=== PATIENT | female | born 1935 | race Caucasian/White ===

== ENCOUNTER → 2016-10-28 | Outpatient (CLI) | payer OTHER ==
[~2016-10-28] MED LIST: ERGO1CAP41 PO; LEVO88TA PO; MOME50SP5 NAE; OLOP0.1S2 XXX; OLOPATADINE 0.6% NAE; PENC1CRE4 TOP; PRLSR20 PO; PRM/3 PO; SALINE 0.65% NAE; SNG10 PO
--- NOTE | 2016-10-29 14:24 | MAMMOGRAPHY REPORT ---
BILATERAL DIGITAL SCREENING MAMMOGRAM WITH CAD: 10/28/2016 CLINICAL HISTORY: Routine screening. Patient has no complaints. TECHNIQUE: Bilateral CC and MLO views were obtained. Current study was also evaluated with a Comput er Aided Detection (CAD) system. COMPARISON: Comparison is made to exams dated: 10/22/2015 mammogram, 10/10/2014 mammogram, 05/17/2013 mammogram, 04/15/2012 mammogram, 03/12/2011 mammogram, and 03/06/2010 mammogram - [facility] enter. BREAST COMPOSITION: There are scattered areas of fibroglandular density in both breasts. FINDINGS: There are fluctuating masses in each upper outer quadrant. Scattered stable benign-appear ing round and punctate microcalcifications bilaterally. No suspicious mass, architectural distortio n or cluster of microcalcifications is seen. IMPRESSION: ACR BI-RADS CATEGORY 1: NEGATIVE There is no mammographic evidence of malignancy. A 1 year screening mammogram is recommended. The p atient will receive written notification of the results. Approximately 10% of breast cancers are not detected with mammography. A negative mammographic repor t should not delay biopsy if a clinically suggestive mass is present. Dejah Crisostomo M.D. ay/:10/28/2016 16:06:17 Movie Shot Cameraman: Shelli HERNANDEZ(Mary)(Hamlet)(MANUEL), [facility] letter sent: Normal 1/2 BI-RADS Code: ACR BI-RADS Category 1: Negative
== END | disposition home or self-care (01) ==
LOC: C.MAMM 11:05
PROVIDERS: ATTEND Family Medicine
DX: Z12.31 Encounter for screening mammogram for malignant neoplasm of breast (principal)

== ENCOUNTER → 2018-01-05 | Outpatient (CLI) | payer OTHER ==
[~2018-01-05] MED LIST changes: -ERGO1CAP41 PO; +ERGO500011 PO; +PENC1CRE33 TOP; -PENC1CRE4 TOP
--- NOTE | 2018-01-07 07:48 | MAMMOGRAPHY REPORT ---
BILATERAL DIGITAL SCREENING MAMMOGRAM TOMOSYNTHESIS WITH CAD: 01/05/2018 CLINICAL HISTORY: Routine screening. Patient has no complaints. TECHNIQUE: Breast tomosynthesis in addition to standard 2D mammography was performed. Current study was also evaluated with a Computer Aided Detection (CAD) system. COMPARISON: Comparison is made to exams dated: 10/28/2016 mammogram, 10/22/2015 mammogram, 10/10/2014 mammogram, 05/17/2013 mammogram, 04/15/2012 mammogram, and 03/12/2011 mammogram - [facility]. BREAST COMPOSITION: There are scattered areas of fibroglandular density in both breasts. FINDINGS: There is fluctuating nodularity in the breasts. Scattered benign round and rim calcificati ons. No suspicious mass, architectural distortion or cluster of suspicious microcalcifications is se en. IMPRESSION: ACR BI-RADS CATEGORY 1: NEGATIVE There is no mammographic evidence of malignancy. A 1 year screening mammogram is recommended. The pa tient will receive written notification of the results. Approximately 10% of breast cancers are not detected with mammography. A negative mammographic report should not delay biopsy if a clinically suggestive mass is present. Dejah Crisostomo M.D. ay/:01/05/2018 15:45:50 Rink Rat: Yen HERNANDEZ(Mary)(Hamlet), [facility] letter sent: Normal 1/2 BI-RADS Code: ACR BI-RADS Category 1: Negative
== END | disposition home or self-care (01) ==
LOC: C.MAMM 10:25
PROVIDERS: ATTEND Family Medicine
DX: Z12.31 Encounter for screening mammogram for malignant neoplasm of breast (principal)

== ENCOUNTER 2018-01-16 20:15 | Emergency (ER) | payer OTHER ==
[~2018-01-16] VITALS: Ht 162.6 cm; Wt 51.0 kg
[2018-01-16 20:23] VITALS: TEMP 36.8; Ht 162.6 cm; Wt 51.0 kg
[2018-01-16] MEDS ORDERED: ACETAMINOPHEN 500 MG TAB PO STA (21:06)
[2018-01-16] MEDS ORDERED: WARF-246 PO (21:22)
[2018-01-16] MEDS ORDERED: TPRSR/25 PO (21:22)
[2018-01-16] MEDS ORDERED: RANI150T2 PO (21:22)
[2018-01-16] MEDS ORDERED: MOME6000 NAE (21:25)
[2018-01-16] MEDS ORDERED: OLOP0.6S NAE (21:25)
[2018-01-16] MEDS ORDERED: MULT60CA PO (21:28)
[2018-01-16] MEDS ORDERED: CLR10 PO (21:28)
[2018-01-16] MEDS ORDERED: CHOL2000 PO (21:28)
[2018-01-16] MEDS ORDERED: KETO0.0216 OPB (21:28)
[2018-01-16] MEDS ORDERED: ACET-1256 PO (21:30)
--- NOTE | 2018-01-16 21:58 | DIAGNOSTIC IMAGING REPORT ---
R FEMUR 2 VIEWS ROUTINE CLINICAL HISTORY: 82 years-old Female presenting with RIGHT HAMSTRING PAIN . TECHNIQUE: Frontal and lateral views of the right femur were obtained. COMPARISON: None. FINDINGS: No acute fracture or malalignment. No advanced degenerative change. No radiographic soft tissue abnormality. IMPRESSION: No acute osseous injury. Electronically signed by: Hamlet Triana M.D. 01/16/2018 9:57 PM Dictated Date/Time: 01/16/2018 9:56 PM
--- NOTE | 2018-01-16 21:59 | DIAGNOSTIC IMAGING REPORT ---
PELVIS 1 OR 2 VIEW ROUTINE CLINICAL HISTORY: 82 years-old Female presenting with right leg injury. TECHNIQUE: Single frontal view the pelvis was obtained. COMPARISON: 07/19/2012. FINDINGS: Sacroiliac joints, pubic symphysis, and hip joints congruent. Pelvis intact. Femoral necks intact. Degenerative changes of the lower lumbar spine. Arcuate lines intact. IMPRESSION: No acute osseous injury. Electronically signed by: Hamlet Triana M.D. 01/16/2018 9:58 PM Dictated Date/Time: 01/16/2018 9:57 PM
--- NOTE | 2018-01-16 22:12 | EMERGENCY ROOM VISIT NOTE ---
ED Visit Note First contact with patient: 20:54 CHIEF COMPLAINT: Right posterior thigh pain 2 hours HISTORY OF PRESENT ILLNESS: Patient is an 82-year-old female who presents the emergency department for evaluation of pain in the posterior right thigh that started about 2 hours ago after an injury. She states that her stumbled and lost his balance and fell into her, she was standing upright essentially with both of her legs locked, when she was bumped. She states that she did not fall down to the ground, but had immediate onset of pain essentially from the inner aspect of the right groin, running down the medial aspect of the right thigh to the posterior knee. She states that she could not move the leg for a few minutes after the injury, then states that when she did, she had difficulty putting weight on it. She feels better when she has the hip and knee flexed. She rates her pain a 1/10. REVIEW OF SYSTEMS: Review of systems as per HPI. All other systems reviewed were negative. 10 systems reviewed.. PMH: Electronic medical records are reviewed and summarized as above/below. See Problem List. SOCIAL HISTORY: Patient lives at home with family members.. PHYSICAL EXAM: Vital Signs: Reviewed Nurse's notes. MENTAL STATUS: Patient is a pleasant, well-appearing 82-year-old white female who is awake and alert and appears younger than her stated age. She is laying supine on the gurney with her right hip and knee flexed. MUSCULOSKELETAL: Examination of the patient's right leg does not reveal any obvious deformity. Low no leg length discrepancy when both of the legs are fully extended. The patient has reproducible tenderness to palpation in the left groin, in the area of the adductor insertion , that is palpable along the medial aspect of the hamstring into the popliteal space. There is no palpable defect. She does not have any pain over the sacrum or the coccyx or over the posterior pelvic rim or over the ischial tuberosity. No pain over the greater trochanter. Pelvis is stable to rock and compression. Examination of the right knee does not reveal any prepatellar soft tissue swelling or joint effusion. No peripatellar tenderness or crepitus. Knee range of motion is full. No gross ligamentous instability is appreciated. The patient has pain with hip extension and abduction. With the hip and knee flexed however she can be internally and externally rotated at the hip and has no discomfort. The right lower extremity is neurovascularly intact. EMERGENCY DEPARTMENT COURSE: The patient was medicated with Tylenol for discomfort. She declined any ice. AP pelvis and right femur x-rays were obtained and noted arthritic changes without evidence for acute fracture or bony abnormality. The patient appears to have suffered a muscular/tendinous injury in the right hamstring distribution. She declined narcotic analgesia. She was offered crutches/walker, but states that they have a walker at home that she can use. Supportive care measures were discussed. She was encouraged to follow-up with her family doctor or orthopedics if her symptoms are not improving. Hip versus pelvic fracture, femur fracture and sprain were also entertained. Medication reconciliation: I attest that I have personally reviewed the patient' s current medication list. Blood pressure screening: Patient was found to have a slightly elevated blood pressure due to circumstances. I do not believe that the patient requires hypertension monitoring. R FEMUR 2 VIEWS ROUTINE CLINICAL HISTORY: 82 years-old Female presenting with RIGHT HAMSTRING PAIN . TECHNIQUE: Frontal and lateral views of the right femur were obtained. COMPARISON: None. FINDINGS: No acute fracture or malalignment. No advanced degenerative change. No radiographic soft tissue abnormality. IMPRESSION: No acute osseous injury. PELVIS 1 OR 2 VIEW ROUTINE CLINICAL HISTORY: 82 years-old Female presenting with right leg injury. TECHNIQUE: Single frontal view the pelvis was obtained. COMPARISON: 07/19/2012. FINDINGS: Sacroiliac joints, pubic symphysis, and hip joints congruent. Pelvis intact. Femoral necks intact. Degenerative changes of the lower lumbar spine. Arcuate lines intact. IMPRESSION: No acute osseous injury. Problem List Medical Problems: (1) Adverse reaction to drug Status: Resolved (2) Esophageal Reflux Status: Chronic (3) Hypertension Nos Status: Chronic (4) Hypothyroidism Nos Status: Chronic Surgical Problems: (1) History of appendectomy Status: Resolved (2) History of cholecystectomy Status: Resolved (3) History of hysterectomy Status: Resolved Current/Historical Medications Scheduled Cholecalciferol (Vitamin D3), 2,000 INTER.UNIT PO DAILY Levothyroxine Sodium (Synthroid), 88 MCG PO DAILY Loratadine (Claritin), 10 MG PO DAILY Metoprolol Succinate (Metoprolol Succinate ER), 25 MG PO DAILY Mometasone Furoate (Nasal) (Mometasone Furoate), 2 SPRAYS MARLEN BID Multiple Vitamins W/ Minerals (Preservision Areds 2), 1 CAP PO BID Olopatadine Hcl (Nasal) (Patanase), 2 SPRY MARLEN BID Ranitidine HCl (Ranitidine HCl), 150 MG PO BID Warfarin Sodium (Warfarin Sodium), 5 MG PO DAILY Scheduled PRN Acetaminophen (Tylenol), 500 MG PO UD PRN for Pain or Fever Ketotifen Fumarate (Ophth) (Zaditor 0.025% Oph), 1 DROP OPB UD PRN for Allergy Symptoms Allergies Coded Allergies: Dairy (Verified Allergy, INTOLERANCE, 07/19/12) Eggs or Egg-derived Products (Verified Allergy, INTOLERANCE, 07/19/12) Penicillins (Verified Allergy, UNKNOWN, 07/19/12) Sulfa Drugs (Verified Allergy, UNKNOWN, 07/19/12) Vital Signs Date Time Temp Pulse Resp B/P (MAP) Pulse Ox O2 Delivery O2 Flow Rate FiO2 01/16/18 22:45 70 18 133/69 95 01/16/18 20:23 36.8 69 18 151/56 97 Room Air Medications Administered Medications (Trade) Dose Ordered Sig/Zach Route Start Time Stop Time Status Last Admin Dose Admin Acetaminophen (Tylenol Tab) 1,000 mg NOW STAT PO 01/16/18 21:06 01/16/18 21:08 DC 01/16/18 21:22 1,000 MG Departure Information Impression Primary Impression: Right hamstring injury Referrals Brice Spears M.D. (PCP) Patient Instructions My [facility] Additional Instructions Acetaminophen(Tylenol) may be used for fever or pain. Use 1000mg every six hours as needed. Avoid using more than 3000mg in a 24 hour period. This medication can be taken if you need to drive, work, or perform activities which may be dangerous when taking narcotic pain medication. Ice compresses for 20 minutes at a time four times daily for 2-3 days, then may switch to moist heat. Use the walker as discussed. Rest and elevate your injury. Continue current medications. Return to the ER immediately for any numbness, tingling, severe pain, extreme swelling in the extremity or as needed. Follow up with your family physician or orthopedic surgery if symptoms are not improving in 3-5 days. Problem Qualifiers Primary Impression: Right hamstring injury Encounter type: initial encounter Qualified Codes: S76.301A - Unspecified injury of muscle, fascia and tendon of the posterior muscle group at thigh level , right thigh, initial encounter
[2018-01-16 22:45] VITALS: BP 133/69; PULSE 70; O2SAT 95
== END 2018-01-16 22:46 | disposition home or self-care (01) ==
LOC: EDBD 20:15 → C.EDC 20:16
DX: S76.301A Unspecified injury of muscle, fascia and tendon of the posterior muscle group at thigh level, right thigh, initial encounter (principal); X58.XXXA Exposure to other specified factors, initial encounter; I10 Essential (primary) hypertension; E03.9 Hypothyroidism, unspecified; Z79.01 Long term (current) use of anticoagulants; Z51.81 Encounter for therapeutic drug level monitoring; Z91.011 Allergy to milk products; Z91.012 Allergy to eggs; Z88.0 Allergy status to penicillin; Z88.2 Allergy status to sulfonamides

== ENCOUNTER 2021-12-11 10:48 | Observation (INO) ==
[2021-12-11] MEDS ORDERED: LIDOCAINE 1% LOCAL 20 ML VIAL ONE (13:26)
[2021-12-11] MEDS ORDERED: VANCOMYCIN HCL 1000MG/20ML VIAL ONE (13:26)
[2021-12-11] MEDS ORDERED: WATER, STERILE FOR INJ 10 ML VIAL ONE (13:26)
[2021-12-11] MEDS ORDERED: BUPIVACAINE 0.25% 30 ML VIAL ONE (13:26)
--- NOTE | 2021-12-11 13:33 | History & Physical Bridge Note ---
Date of Service December 11, 2021 History & Physical Bridge Note I have examined the patient, reviewed the History & Physical and in the interval since the performance of the History & Physical I have noted the following changes of clinical significance: no changes noted
--- NOTE | 2021-12-11 13:33 | Pre Anesthesia Assessment ---
Date of Service December 11, 2021 Pre Sedation Assessment Vital Signs Temp Pulse Resp Pulse Ox 12/11/21 11:21 36.3 C L 58 L 18 99 Cardiovascular RRR, no murmur, no edema + bradycardic Respiratory normal respiratory effort, lungs clear to auscultation Pre-Sedation Airway Assessment Smoking Status: Former smoker Hx Sleep Apnea: No Short, Thick Neck: No Thyromental Distance: > or= 3.5 Finger Breadths Oral Cavity: + WNL Mallampati Class: II ASA: ASA2 NPO Status Date of Last Intake of Fluids: 12/11/21 Time of Last Intake of Fluids: 08:00 Date of Last Intake of Solid Food: 12/10/21 Time of Last Intake of Solid Foods: 20:00 Procedure Planning Contraindications for Sedation: none Current Medications Reviewed: Yes Notes The planned sedation has been discussed with the patient. Informed Consent was obtained. I have identified the patient, determined the appropriateness of sedation and have assessed the patient immediately prior to the procedure. All medicine(s) and interventions are by my order.
[2021-12-11] MEDS ORDERED: CLINDAMYCIN PHOS 300 MG/2 ML VIAL ONE (13:52)
[2021-12-11] MEDS ORDERED: fentaNYL citrate 100 MCG/2 ML VIAL ONE ×2 (13:54→15:04)
[2021-12-11] MEDS ORDERED: MIDAZOLAM HCL 5 MG/ML 1 ML VIAL ONE (13:54)
--- NOTE | 2021-12-11 16:08 | Post Anesthesia Assessment ---
Date of Service December 11, 2021 Post Sedation Assessment Vital Signs Temp Pulse Resp Pulse Ox 12/11/21 11:21 36.3 C L 58 L 18 99 Recovery Score Activity: Moves 4 extremities Respiration: Deep Breath/Cough Circulation: +/-20% PreAnes Value Consciousness: Fully Awake Oxygen Saturation: > 92% On Room Air Discharge Sedation Level of Care: Fast Track Phase II Post Sedation Plan On clinical assessment, the patient appears to have tolerated the sedation without complications. Patient is recovering as anticipated. Patient will continue to be monitored by nursing and may be discharged when sedation discharge criteria are met per below protocol. Upon Completions of procedure up to 15 minutes continue every 5 minute vital signs and the P.A.R. score; then discharge to a Phase I or Fast Track to Phase II per the following guidelines: * Discharge Patient to appropriate Phase II area if PAR is 8 or greater or return to pre- procedure baseline. The post - procedure orders will be as directed. * If PAR score is less than 8 or not return to pre-procedure baseline then patient will follow Phase I monitoring till PAR is reached for Phase II. The Phase I may be done in procedure room or may call to secure a Phase I area. * If naloxone or flumazenil are used for reversal, hold in Phase I for continued monitoring from when last reversal dose was given for a minimum of 60 minutes or longer pending the nurse and/or physician discretion of patient condition before discharge to Phase II. Please call the Sedation Physician to re-evaluate and complete post-note for discharge to Phase II area. Do NOT discharge from procedure sedation or Phase 1 until post- sedation evaluation note is complete by procedure /sedation MD Sedation Discharge Instructions to be given to the patient at discharge to home.
--- NOTE | 2021-12-11 16:10 | Operative Report ---
Post Operative Report Pre & Post Diagnosis tbs Operation Date: 12/11/21 12:00 <No data on this case meets the specified criteria> I identified the patient and participated in the time-out.: Yes Procedure Operation Date: 12/11/21 12:00 Actual Procedures p Pacer with A/V Leads (Dual) - Maria Isabel Hogue DO Surgeon Maria Isabel Hogue, Epic Interface Analyst none Estimated Blood Loss 25 Findings Consistent with Post-Op Diagnosis Specimens none Description of Procedure see official report I attest to the content of the Intraoperative Record and any orders documented therein. Any exceptions are noted below.
--- NOTE | 2021-12-11 17:10 | XRay Report ---
XR chest 1V portable CLINICAL HISTORY: s/p ppm COMPARISON STUDY: Chest radiograph September 20, 2020. FINDINGS: Interval placement of a dual lead left subclavian pacemaker is noted. There is a small to m oderate left pneumothorax. Superior pleural separation measures 1.9 cm. Cardiomediastinal silhouette is stable. There is no evidence for pulmonary edema. No pleural effusion is present. No right pneumot horax. IMPRESSION: Small to moderate left pneumothorax following pacemaker insertion. This finding was disc ussed with Dr. Hogue at time of dictation. ACT 112: Negative or not required by law. Electronically signed by: David Leigh M.D. 12/11/2021 5:09 PM
[2021-12-11] MEDS ORDERED: ARTIFICIAL TEARS OP PRN (18:16)
[2021-12-11] MEDS ORDERED: ONDANSETRON INJ 2 MG/ML 2 ML VIAL IV PRN (18:26)
[2021-12-11] MEDS ORDERED: hydrALAZINE HCL 20 MG/ML VIAL IV PRN (18:27)
[2021-12-11] MEDS: ACETAMINOPHEN 500 MG TAB PO PRN (20:43)
[2021-12-12] MEDS: ACETAMINOPHEN 500 MG TAB PO PRN ×2 (06:23→12:26)
[2021-12-12] MEDS: LEVOTHYROXINE SODIUM 125 MCG TABLET PO SCH (06:24)
[2021-12-12 06:37] LABS: Basophils # (auto) 0.03 K/uL (0-0.2); Basophils % (auto) 0.4 %; Eosinophils # (auto) 0.03 K/uL (0-0.5); Eosinophils % (auto) 0.4 %; Hematocrit (blood only) 39.3 % (37-47); Immature Granulocytes # (auto) 0.02 K/uL (0.00-0.02); Immature Granulocytes % (auto) 0.3 %; Lymphocytes # (auto) 1.23 K/uL (1.2-3.4); Lymphocytes % (auto) 16.7 %; Mean Corpuscular Hemoglobin 30.8 pg (25-34); Mean Corpuscular Hgb Conc 33.1 g/dL (32-36); Mean Corpuscular Volume 93.1 fL (80-100); Mean Platelet Volume 11.7 fL (7.4-10.4); Monocytes # (auto) 0.88 K/uL (0.11-0.59); Neutrophils # (auto) 5.17 K/uL (1.4-6.5); Neutrophils % (auto) 70.2 %; Platelet Count 181 K/uL (130-400); RDW Coefficient of Variation 14.1 % (11.5-14.5); RDW Standard Deviation 47.9 fL (36.4-46.3); Red Blood Count 4.22 M/uL (4.2-5.4); White Blood Count 7.36 K/uL (4.8-10.8)
[2021-12-12 06:51] LABS: INR 1.3 (0.9-1.1); Prothrombin Time 13.4 Seconds (9.0-12.0)
[2021-12-12 07:08] LABS: BUN Creatinine Ratio 15.1 (10-20); Calcium 8.5 mg/dl (8.5-10.1); Creatinine Clr Calc Pharmacy 42.6 ml/min; Est GFR (African American) 70.9 ml/min; Est GFR (Non-African American) 61.2 ml/min; Potassium 4.1 mmol/L (3.5-5.1)
--- NOTE | 2021-12-12 09:17 | XRay Report ---
XR chest 2V PA/lateral HISTORY: Follow-up pneumothorax. Status post pacemaker placement. COMPARISON: Chest 12/11/2021. FINDINGS: Small left pneumothorax has increased in size and now demonstrates a maximal pleural gap of 2.1 cm. This extends into the left lung base. A left-sided dual-chamber pacemaker is again noted. Th e heart is normal in size. No evidence for pulmonary edema. Trace bilateral pleural effusions. IMPRESSION: 1. Increase in size in the small left pneumothorax. 2. Trace bilateral pleural effusions. 3. This report was called/faxed to the referring physician following dictation. ACT 112: Negative or not required by law. Electronically signed by: Foreign Barnett M.D. 12/12/2021 9:16 AM
[2021-12-12] MEDS: CHOLECALCIFEROL 1,000 UNITS 25 MCG TAB PO SCH (09:43)
[2021-12-12] MEDS: METOPROLOL SUCC 50MG EXT REL TAB PO SCH (09:44)
[2021-12-12] MEDS: LORATADINE 10 MG TAB PO SCH (09:44)
[2021-12-12] MEDS: PANTOprazole 40 MG TAB PO SCH (09:44)
[2021-12-12] MEDS: FAMOTIDINE 20 MG TAB PO SCH (09:44)
--- NOTE | 2021-12-12 10:09 | Hospitalist Consultation ---
Date of Consultation December 12, 2021 History of Present Illness Attending Physician: Maria Isabel Hogue DO History of Present Illness This is an 86 yo F with PMhx of tachybrady syndrome, PAF/flutter on metoprolol and coumadin, HTN, HLD, CKD stage III, hypothyroidism, osteoporosis, CKD III, neuropathy who presented to the hospital overnight for pacemaker insertion on 12/11/[address] Mercedes. Allergies Allergy/AdvReac Type Severity Reaction Status Date / Time Egg Derived Allergy INTOLERANCE Verified 07/19/12 02:13 milk Allergy INTOLERANCE Verified 07/19/12 02:13 Penicillins Allergy UNKNOWN Verified 07/19/12 02:13 Sulfa (Sulfonamide Allergy UNKNOWN Verified 07/19/12 02:13 Antibiotics) Home Medications Medication Instructions Recorded Confirmed Type Acetaminophen (Tylenol) 500 mg PO UD PRN #0 tab 01/16/18 12/11/21 History CHOLECALCIFEROL (VITAMIN D3) 2,000 inter.unit PO DAILY #0 cap 01/16/18 12/11/21 History KETOTIFEN FUMARATE (OPHTH) 1 drp OPB UD PRN #0 btl 01/16/18 12/11/21 History (ZADITOR 0.025% OPH) Loratadine (Claritin) 10 mg PO DAILY #0 tab 01/16/18 12/11/21 History MULTIPLE VITAMINS W/ MINERALS 2 cap PO DAILY #0 01/16/18 12/11/21 History (PRESERVISION AREDS 2) Mometasone Furoate (Nasal) 2 spry MARLEN BID #0 01/16/18 12/11/21 History (Mometasone Furoate) WARFARIN SODIUM 5 mg PO DAILY #0 01/16/18 12/11/21 History Metoprolol Succinate (Metoprolol 50 mg PO DAILY #0 12/11/21 12/11/21 Rx Succinate ER) famotidine 20 mg tablet 20 mg PO DAILY 12/11/21 12/11/21 History ipratropium bromide 21 mcg (0.03 2 spray INTRANASAL BID PRN 12/11/21 12/11/21 History %) nasal spray lactobacillus combination no.4 3 3,000 mmu cells PO DAILY 12/11/21 12/11/21 History billion cell capsule (Probiotic) levothyroxine 125 mcg tablet 125 mcg PO DAILY 12/11/21 12/11/21 History (Synthroid) omeprazole 40 mg capsule,delayed 40 mg PO DAILY 12/11/21 12/11/21 History release peg 400 0.4 %-propylene glycol 1 drp OPHTHALMIC (EYE) DAILY PRN 12/11/21 12/11/21 History (PF) 0.3 % eye drops (Systane Hydration PF) vitamin B complex 1 cap PO DAILY 12/11/21 12/11/21 History Patient History Social History Smoking Status: Former smoker Tobacco Type: Cigarettes Hx Alcohol Use: No Hx Substance Use: No Beliefs That Will Affect Care: None Current Living Situation: Family Other Information That Helps Us Care for You: No Feels Safe at Home: Yes Safety Concerns: Feels Safe At This Time Assistive Devices: None Results & Data Results & Data ([facility]) Vital Signs (Past 12 Hours) Vital Signs Temp Pulse Pulse Resp BP Pulse Ox 12/12/21 09:51 94 12/12/21 09:36 66 121/60 88 L 12/12/21 07:44 36.9 C 60 18 145/68 H 92 12/12/21 07:22 36.6 C 64 12 134/65 93 12/12/21 03:45 37.0 C 60 17 129/61 97 12/11/21 23:05 60 12/11/21 23:04 36.5 C 60 16 125/67 96
--- NOTE | 2021-12-12 10:11 | Cardiology Progress Note ---
Date of Service December 12, 2021 Assessment & Plan (1) Pneumothorax, postprocedural: (2) S/P cardiac pacemaker procedure: (3) Paroxysmal atrial fibrillation: (4) Tachy-amber syndrome: (5) HTN (hypertension): Plan: Patient seen and examined with history as noted above. Pneumothorax slightly greater in size today. Pacemaker functioning appropriately patient with mild to moderate pleuritic pain and incisional discomfort. Discussed with pulmonology will place patient on nonrebreather mask repeat chest x-ray in 4 hours consider thoracostomy if pneumothorax remains persistent Continue to hold warfarin Expect at least an additional 24-hour stay in hospital we will consult hospitalist Admission and Anticipated Discharge Date Admission Date: December 11, 2021 Subjective Patient seen and examined, chart, medications, telemetry reviewed. With pleuritic pain this morning as well as incisional pain with minimal intermittent drops in O2 saturations. Oxygen discontinued last night due to normal O2 sats. Chest x-ray reveals slightly larger pneumothorax with basilar expansion Pacemaker functioning appropriately on interrogation this morning. Surgical site without hematoma. No fevers or chills. Warfarin on hold, INR normal Review of Systems Review of Systems: All systems reviewed & are unremarkable except as noted in Subjective Physical Exam Constitutional: + thin; no acute distress Mild pleuritic pain on deep inspiration Eyes: PERRL, conjunctivae normal, anicteric sclerae ENMT: external ear and nose normal, oropharynx normal Neck: trachea midline, no thyromegaly Respiratory: Auscultation: + diminished lung sounds Cardiovascular: Rate/Rhythm: regular rate and regular rhythm Chest (Breasts): Chest: + pacemaker (No hematoma with mild incisional tenderness) Gastrointestinal (Abdomen): normal bowel sounds, soft, nontender, no hepatosplenomegaly Musculoskeletal: no cyanosis or clubbing, extremities motor strength 5/5 Neurologic: PERRL, EOMI, accommodation nl, no face palsy, no dysarthria Results & Data ([facility]) Vital Signs (Past 12 Hours) Vital Signs Temp Pulse Pulse Resp BP Pulse Ox 12/12/21 09:51 94 12/12/21 09:36 66 121/60 88 L 12/12/21 07:44 36.9 C 60 18 145/68 H 92 12/12/21 07:22 36.6 C 64 12 134/65 93 12/12/21 03:45 37.0 C 60 17 129/61 97 12/11/21 23:05 60 12/11/21 23:04 36.5 C 60 16 125/67 96 Laboratory Results Laboratory Results - last 24 hr 12/12/21 12/12/21 12/12/21 06:17 06:17 06:17 WBC 7.36 RBC 4.22 Hgb 13.0 Hct 39.3 MCV 93.1 MCH 30.8 MCHC 33.1 RDW Std Deviation 47.9 H RDW Coeff of Ritu 14.1 Plt Count 181 MPV 11.7 H Immature Gran % (Auto) 0.3 Neut % (Auto) 70.2 Lymph % (Auto) 16.7 [place] % (Auto) 12.0 Eos % (Auto) 0.4 Baso % (Auto) 0.4 Neut # (Auto) 5.17 Lymph # (Auto) 1.23 [place] # (Auto) 0.88 H Eos # (Auto) 0.03 Baso # (Auto) 0.03 Immature Gran # (Auto) 0.02 PT 13.4 H INR 1.3 H Sodium 136 Potassium 4.1 Chloride 104 Carbon Dioxide 26 Anion Gap 6 BUN 13 Creatinine 0.86 Est Cr Clr Drug Dosing 42.6 Est GFR ( Amer) 70.9 Est GFR (Non-Af Amer) 61.2 BUN/Creatinine Ratio 15.1 Glucose 98 Calcium 8.5 Diagnostic Findings Chest x-ray PA and lateral 12/12/2021 FINDINGS: Small left pneumothorax has increased in size and now demonstrates a maximal pleural gap of 2.1 cm. This extends into the left lung base. A left- sided dual-chamber pacemaker is again noted. The heart is normal in size. No evidence for pulmonary edema. Trace bilateral pleural effusions. IMPRESSION: 1. Increase in size in the small left pneumothorax. 2. Trace bilateral pleural effusions.
--- NOTE | 2021-12-12 10:26 | History & Physical Report ---
Date of Service December 12, 2021 Assessment & Plan (1) S/P cardiac pacemaker procedure: (2) Tachy-amber syndrome: (3) Paroxysmal atrial fibrillation: (4) HTN (hypertension): (5) HLD (hyperlipidemia): Plan: - Admit to tele - Cardiology has requested that medicine take over management of the patient at this time - Consult cardiology and pulmonology for continued care - Metoprolol 50 mg qam initiated, continue - Vital signs are stable - Resume coumadin once ok with cardiology, has been held past 2 days, INR 1.3 , trend with daily labs (6) Pneumothorax, postprocedural: Plan: -CXR from 12/11 reviewed showing small pneumothorax measuring 1.9 cm, continue oxygen as treatment, patient is currently on 100% nonrebreather as she was taken off of O2 in the middle the night. Same pneumothorax is now measuring approximately 2.1 cm, no pulmonary edema, trace bilateral pleural effusions -Currently not short of breath, O2 sats are 94%, respiratory rate is 18 -Repeat CXR routinely, next around 1400, can do Q4H pending response to o2 -Consult pulmonology for further management-if increased size and pneumo can consider needle decompression or chest tube insertion (7) Hypothyroidism: Plan: - Continue levothyroxine 125 mcg daily (8) CKD (chronic kidney disease), stage III: Plan: - Cr. today is 0.86 vs baseline of 1.0 - monitor closely for volume overload, noted bilateral small pleural effusions on CXR - appears euvolemic on exam. (9) Osteoporosis: Plan: - Cont vit D and calcium supplementation DVT ppx: - teds, scds, resume coumadin as per cardiology, encourage ambulation CODE: Full code Dispo: From home, likely to remain in the hospital x 1-2 days Admission and Anticipated Discharge Date Admission Date: December 11, 2021 History of Present Illness Chief Complaint: pacer complication Primary Care Provider: Brice Spears MD This is an 86 yo F with PMhx of tachybrady syndrome, PAF/flutter on metoprolol and coumadin, HTN, HLD, CKD stage III, hypothyroidism, osteoporosis, CKD III, neuropathy who presented to the hospital overnight for pacemaker insertion on 12/11/[address] Mercedes. Reason for placement is primarily due to tachybradycardia syndrome where earlier in November she was seen by cardiology and her heart rate was noted to be in the 40s so low-dose metoprolol was stopped, then 2 weeks later was followed up in the outpatient cardiology office and found to be in A. fib with a heart rate in the 130s so was started back on low-dose metoprolol and referred to electrophysiology. Doctors is only recommended pacemaker at that point time. Pt is seen s/p pacemaker insertion. She has been holding her Coumadin for the past 2 days prior to pacemaker placement. Patient tolerated the procedure itself well. Post procedurally the patient developed a small left-sided pneumothorax which measured 2 cm initially. This morning the pneumothorax is slightly larger, so the patient was placed on 100% nonrebreather. Pulmonology has been consulted and will plan to repeat chest x-ray routinely to ensure resolvent. Margarita is doing very well currently, with her only complaint is moderate soreness status post procedure. She is wearing a sling to help assist with comfort as well as keeping her from raising her left arm over her head. She denies any complaints of shortness of breath, cough, or congestion. She is aware that she has a lung issue and is been requested to wear oxygen until this resolves. We discussed a repeat chest x-ray around 2:00 this afternoon, pulmonology consult, and will further determine if there is any further needs for pneumothorax management. Surgical Hx: hysterectomy with ovaries remaining, appendectomy, tonsillectomy Family Hx: Mother: cardiac disease, DM II, kidney disease, stroke Father: CHF, Stroke Uncle: Stroke Uncle: Cardiac disease Paternal grandmother: Stroke Allergies Allergy/AdvReac Type Severity Reaction Status Date / Time Egg Derived Allergy INTOLERANCE Verified 07/19/12 02:13 milk Allergy INTOLERANCE Verified 07/19/12 02:13 Penicillins Allergy UNKNOWN Verified 07/19/12 02:13 Sulfa (Sulfonamide Allergy UNKNOWN Verified 07/19/12 02:13 Antibiotics) Home Medications Medication Instructions Recorded Confirmed Type Acetaminophen (Tylenol) 500 mg PO UD PRN #0 tab 01/16/18 12/12/21 History CHOLECALCIFEROL (VITAMIN D3) 2,000 inter.unit PO DAILY #0 cap 01/16/18 12/12/21 History KETOTIFEN FUMARATE (OPHTH) 1 drp OPB UD PRN #0 btl 01/16/18 12/12/21 History (ZADITOR 0.025% OPH) Loratadine (Claritin) 10 mg PO DAILY #0 tab 01/16/18 12/12/21 History MULTIPLE VITAMINS W/ MINERALS 2 cap PO DAILY #0 01/16/18 12/12/21 History (PRESERVISION AREDS 2) Mometasone Furoate (Nasal) 2 spry MARLEN BID #0 01/16/18 12/12/21 History (Mometasone Furoate) WARFARIN SODIUM 5 mg PO DAILY #0 01/16/18 12/12/21 History Metoprolol Succinate (Metoprolol 50 mg PO DAILY #0 12/11/21 12/12/21 Rx Succinate ER) famotidine 20 mg tablet 20 mg PO DAILY 12/11/21 12/12/21 History ipratropium bromide 21 mcg (0.03 2 spray INTRANASAL BID PRN 12/11/21 12/12/21 History %) nasal spray lactobacillus combination no.4 3 3,000 mmu cells PO DAILY 12/11/21 12/12/21 History billion cell capsule (Probiotic) levothyroxine 125 mcg tablet 125 mcg PO DAILY 12/11/21 12/12/21 History (Synthroid) omeprazole 40 mg capsule,delayed 40 mg PO DAILY 12/11/21 12/12/21 History release peg 400 0.4 %-propylene glycol 1 drp OPHTHALMIC (EYE) DAILY PRN 12/11/21 12/12/21 History (PF) 0.3 % eye drops (Systane Hydration PF) vitamin B complex 1 cap PO DAILY 12/11/21 12/12/21 History Past Med/Surg History Medical History (Updated 12/12/21 @ 12:46 by Rosana Mendoza PA-C) CKD (chronic kidney disease), stage III HLD (hyperlipidemia) HTN (hypertension) Hypothyroidism Osteoporosis Paroxysmal atrial fibrillation Tachy-amber syndrome Surgical History (Updated 12/12/21 @ 12:45 by Rosana Mendoza PA-C) H/O: hysterectomy Hx of tonsillectomy S/P appendectomy Family History (Updated 12/12/21 @ 12:44 by Rosana Mendoza PA-C) Mother Heart disease Coronary heart disease Stroke Father Heart disease Uncle Stroke Grandmother (Paternal) Stroke Uncle Heart disease Social History Smoking Status: Former smoker Tobacco Type: Cigarettes Hx Alcohol Use: No Hx Substance Use: No Beliefs That Will Affect Care: None Current Living Situation: Family Other Information That Helps Us Care for You: No Feels Safe at Home: Yes Safety Concerns: Feels Safe At This Time Assistive Devices: None Review of Systems Review of Systems: Constitutional: No fever, sweats or chills Eyes: No diplopia, no worsening or blurred vision ENT: normal hearing, no trouble swallowing Respiratory: No cough, sputum, dyspnea at rest or on exertion Cardiovascular: No chest pain, +soreness around incision site, no tightness or palpitations Abdomen: No pain, nausea, vomiting, diarrhea or constipation Musculoskeletal: No joint pain, calf pain, swelling Neurologic: No weakness, numbness/tingling, or balance problems Psychiatric: No anxiety or depression Skin: No rash or itch Physical Exam Physical Exam: General: awake, alert, no apparent distress Head: Normocephalic, atraumatic ENT: PERRL, EOMI, no pharyngeal exudate, mucous membranes moist Chest: Clear to auscultation, on 100% nonrebreather with adequate O2 sats, no adventitious breath sounds Cardiac: Regular rate and rhythm, + incision site dressing c/d/i, no murmur, no JVD, normal peripheral pulses, good capillary refill Abdominal: NABS x 4 quadrants, soft, nondistended, nontender to palpation, no rebound or guarding Extremities: Normal inspection, no peripheral edema or erythema, calfs nontender to palpation Psych: Normal mood and affect Neuro: AAO x 3, strength intact bilaterally and rated 5/5, no motor deficits, speech is clear, no peripheral sensory deficits Results & Data Results & Data ([facility]) Vital Signs (Past 12 Hours) Vital Signs Temp Pulse Pulse Resp BP Pulse Ox 12/12/21 09:51 94 12/12/21 09:36 66 121/60 88 L 12/12/21 07:44 36.9 C 60 18 145/68 H 92 12/12/21 07:22 36.6 C 64 12 134/65 93 12/12/21 03:45 37.0 C 60 17 129/61 97 12/11/21 23:05 60 12/11/21 23:04 36.5 C 60 16 125/67 96 Laboratory Results 12/12/21 12/12/21 12/12/21 06:17 06:17 06:17 WBC 7.36 RBC 4.22 Hgb 13.0 Hct 39.3 MCV 93.1 MCH 30.8 MCHC 33.1 RDW Std Deviation 47.9 H RDW Coeff of Ritu 14.1 Plt Count 181 MPV 11.7 H Immature Gran % (Auto) 0.3 Neut % (Auto) 70.2 Lymph % (Auto) 16.7 Buchanan % (Auto) 12.0 Eos % (Auto) 0.4 Baso % (Auto) 0.4 Neut # (Auto) 5.17 Lymph # (Auto) 1.23 Buchanan # (Auto) 0.88 H Eos # (Auto) 0.03 Baso # (Auto) 0.03 Immature Gran # (Auto) 0.02 PT 13.4 H INR 1.3 H Sodium 136 Potassium 4.1 Chloride 104 Carbon Dioxide 26 Anion Gap 6 BUN 13 Creatinine 0.86 Est Cr Clr Drug Dosing 42.6 Est GFR ( Amer) 70.9 Est GFR (Non-Af Amer) 61.2 BUN/Creatinine Ratio 15.1 Glucose 98 Calcium 8.5 Diagnostic Findings Chest X-Ray 12/11/21 17:00 XR chest 1V portable CLINICAL HISTORY: s/p ppm COMPARISON STUDY: Chest radiograph September 20, 2020. FINDINGS: Interval placement of a dual lead left subclavian pacemaker is noted. There is a small to moderate left pneumothorax. Superior pleural separation measures 1.9 cm. Cardiomediastinal silhouette is stable. There is no evidence for pulmonary edema. No pleural effusion is present. No right pneumothorax. IMPRESSION: Small to moderate left pneumothorax following pacemaker insertion. This finding was discussed with Dr. Hogue at time of dictation. ACT 112: Negative or not required by law. Electronically signed by: David Leigh M.D. 12/11/2021 5:09 PM Chest X-Ray 12/12/21 08:00 XR chest 2V PA/lateral HISTORY: Follow-up pneumothorax. Status post pacemaker placement. COMPARISON: Chest 12/11/2021. FINDINGS: Small left pneumothorax has increased in size and now demonstrates a maximal pleural gap of 2.1 cm. This extends into the left lung base. A left- sided dual-chamber pacemaker is again noted. The heart is normal in size. No evidence for pulmonary edema. Trace bilateral pleural effusions. IMPRESSION: 1. Increase in size in the small left pneumothorax. 2. Trace bilateral pleural effusions. 3. This report was called/faxed to the referring physician following dictation. ACT 112: Negative or not required by law. Electronically signed by: Foreign Barnett M.D. 12/12/2021 9:16 AM Code Status & VTE Plan Code Status Full code VTE Prophylaxis Plan VTE Prophylaxis will be ordered: No Supervising Physician Co-Signing Physician Notes I have seen and examined the patient and have discussed the case with the provider above. I agree with the assessment and plan as stated. 86 yo F s/p pacemaker placement on 12/11 c/b pneumothorax that is >2cm. She was admitted for conservative management overnight and CXR this morning reveals worsening pleural gap. She reports pain now in her back and nurse just messaged to say she also now has worsened pain moving into her epigastric region. Patient had just eaten some lunch when I saw her and wasn't sure if the food made her pain worse. She is wearing 100% oxygen supplementation and is not working to breathe. She otherwise reports some incisional pain and swelling around her pacer site. Physical exam reveals an elderly woman who is well-nourished and well-developed who is in no acute distress on 100% oxygen by non-rebreather. Lungs are clear to auscultation with some diminished breath sounds on the left and there are no crackles, wheezes or rales. There is no increased respiratory effort and no conversational dyspnea. Cardiac exam reveals S1/2 heard without m/g/r. Rhythm is regular and rate is regular. Abdomen is soft, NTND. She has no peripheral edema and examines as euvolemic. She is mentating clearly and has no gross focal neurologic deficits. CXR this morning with slight progression to PTX. CBC and BMP within normal limits and INR 1.3 with a known history of warfarin use held for procedure. EKG with RBBB and no evidence of acute ischemia. She has a known h/o PAF and has intermittently gone into atrial fibrillation here on the monitor with spontaneous conversion back to sinus rhythm. Agree with plan as above for conservative management pending further evaluation by pulmonary. Cont supportive care with continuous oxygen supplementation for now. Hold on anticoagulation in case of need for procedure. Enid Peru, DO [facility]
[2021-12-12] MEDS ORDERED: MoRPHine SULFATE 2 MG/ML CARP IV PRN (12:24)
[2021-12-12] MEDS ORDERED: oxyCODONE HCL IR 5 MG TAB (IMMEDIATE RELEASE) PO PRN (12:24)
[2021-12-12] MEDS ORDERED: ACETAMINOPHEN 500 MG TAB PO PRN (12:26)
--- NOTE | 2021-12-12 14:36 | XRay Report ---
XR chest 2V PA/lateral at 2:34 PM CLINICAL HISTORY: Follow-up pneumothorax. COMPARISON STUDY: 12/12/2021 at 8:41 AM TECHNIQUE: 2 views of the chest FINDINGS: Frontal and lateral radiographs of the chest demonstrate the cardiomediastinal silhouette to be withi n normal limits. Compared to the previous study, there is slight interval decrease in left apical pne umothorax with maximal pleural catheter now measuring 1.8 cm. Minimal extension to the left lung base is seen with evidence for hydropneumothorax at the left lung base. Lungs are otherwise clear of alveolar opacities. There is evidence for underlying COPD. There is no e vidence for right pleural effusion. There is small left pleural effusion. There is no evidence for va scular congestion. There is no acute osseous pathology. IMPRESSION: 1. Slight interval improvement in left apical pleural effusion as described above. 2. There is a small hydropneumothorax at the left lung base. ACT 112: Negative or not required by law. Electronically signed by: Gilberto Olvera M.D. 12/12/2021 2:34 PM
[2021-12-12] MEDS ORDERED: FAMOTIDINE 20 MG in SYRINGE 3 ML IV PRN (15:14)
[2021-12-12] MEDS ORDERED: CALCIUM CARBONATE 500 MG CHEWABLE TAB PO PRN (15:14)
--- NOTE | 2021-12-12 16:19 | Pulmonary Consultation ---
Date of Consultation December 12, 2021 Assessment & Plan (1) Pneumothorax, postprocedural: 86F w/ hx hypertension stage III CKD, hypothyroidism, hyperlipidemia, paroxysmal atrial fibrillation (with tachybradycardia syndrome complications) seen for postprocedural left-sided pneumothorax following implantation of pacemaker -Pneumothorax appears to have reduced in size. Therefore, no need for decompressive thoracostomy at this time. Continue to monitor. (2) Pleuritic pain: Supervising Physician Co-Signing Physician Notes Patient seen and examined with the resident physician. Agree with the assessment and plan aside for any additions/exceptions noted: Patient with a post pacemaker placement left apical pneumothorax. Discussed in person with cardiology. Serial x-rays reviewed going back to 12/11/2021 at 5:09 PM. Last chest x-ray from 12/12/2021 at 2:34 PM suggesting slight interval improvement in the left apical pneumothorax with a basilar component as well. Radiology read pleural separation to be approximately 1.8 cm. Upon my review there appears to be stability going back to the previous chest x-ray from earlier today. We will continue with conservative strategy of serial chest x- rays and nonrebreather to help allow for reabsorption of the pneumothorax. Should there be any increase in size of pneumothorax or worsening symptoms, will place a small bore chest tube. Please hold anticoagulation. Physical exam Constitutional: Elderly appearing female no apparent distress. Sitting up in a bed and eating her dinner. Eyes: Pupils are equal round and reactive to light. Conjunctivae are normal. Anicteric sclera. Ears nose, mouth and throat: No facial deformity. Nasal tubing in place. Neck: Trachea is midline. Visual inspection is normal. Respiratory: Clear to auscultation bilaterally. Slightly diminished on the left. No wheezes. Cardiovascular: Regular rate and rhythm. No murmurs. No edema. Gastrointestinal: Normal bowel sounds, soft, nontender and nondistended. No hepatosplenomegaly noted. Musculoskeletal: Left upper limb immobilizer in place. Bandaging in place over the pacemaker site. Skin: No rashes, warm dry and intact. Neurologic: No obvious focal neurological deficits seen. Psychiatric: Alert and oriented x3 with a euthymic affect. History of Present Illness Attending Physician: Enid Matt DO History of Present Illness Margarita is an 86-year-old woman with a past medical history of hypertension, rate controlled and anticoagulated paroxysmal atrial fibrillation (complicated by tachybradycardia syndrome, now status post cardiac pacemaker implantation), stage III CKD, and osteoporosis, who developed a pneumothorax following pacemaker implantation. Left apical pneumothorax was confirmed via chest x-ray, measuring approximately 2.1 cm. Today, patient is lying in bed comfortably. She denies shortness of breath at rest and with ambulation to and from the commode in her room. She denies cough, recent infection, or wheeze. She does report pleuritic chest pain "between the shoulder blades." She has no further questions or complaints at this time. Allergies Allergy/AdvReac Type Severity Reaction Status Date / Time Egg Derived Allergy INTOLERANCE Verified 07/19/12 02:13 milk Allergy INTOLERANCE Verified 07/19/12 02:13 Penicillins Allergy UNKNOWN Verified 07/19/12:13 Sulfa (Sulfonamide Allergy UNKNOWN Verified 07/19/12 02:13 Antibiotics) Home Medications Medication Instructions Recorded Confirmed Type Acetaminophen (Tylenol) 500 mg PO UD PRN #0 tab 01/16/18 12/12/21 History CHOLECALCIFEROL (VITAMIN D3) 2,000 inter.unit PO DAILY #0 cap 01/16/18 12/12/21 History KETOTIFEN FUMARATE (OPHTH) 1 drp OPB UD PRN #0 btl 01/16/18 12/12/21 History (ZADITOR 0.025% OPH) Loratadine (Claritin) 10 mg PO DAILY #0 tab 01/16/18 12/12/21 History MULTIPLE VITAMINS W/ MINERALS 2 cap PO DAILY #0 01/16/18 12/12/21 History (PRESERVISION AREDS 2) Mometasone Furoate (Nasal) 2 spry MARLEN BID #0 01/16/18 12/12/21 History (Mometasone Furoate) WARFARIN SODIUM 5 mg PO DAILY #0 01/16/18 12/12/21 History Metoprolol Succinate (Metoprolol 50 mg PO DAILY #0 12/11/21 12/12/21 Rx Succinate ER) famotidine 20 mg tablet 20 mg PO DAILY 12/11/21 12/12/21 History ipratropium bromide 21 mcg (0.03 2 spray INTRANASAL BID PRN 12/11/21 12/12/21 History %) nasal spray lactobacillus combination no.4 3 3,000 mmu cells PO DAILY 12/11/21 12/12/21 History billion cell capsule (Probiotic) levothyroxine 125 mcg tablet 125 mcg PO DAILY 12/11/21 12/12/21 History (Synthroid) omeprazole 40 mg capsule,delayed 40 mg PO DAILY 12/11/21 12/12/21 History release peg 400 0.4 %-propylene glycol 1 drp OPHTHALMIC (EYE) DAILY PRN 12/11/21 12/12/21 History (PF) 0.3 % eye drops (Systane Hydration PF) vitamin B complex 1 cap PO DAILY 12/11/21 12/12/21 History Patient History Medical History (Updated 12/12/21 @ 18:21 by Tariq Alonso MD) CKD (chronic kidney disease), stage III HLD (hyperlipidemia) HTN (hypertension) Hypothyroidism Osteoporosis Paroxysmal atrial fibrillation Pleuritic pain Tachy-amber syndrome Surgical History (Updated 12/12/21 @ 12:45 by Rosana Mendoza PA-C) H/O: hysterectomy Hx of tonsillectomy S/P appendectomy Family History (Updated 12/12/21 @ 12:44 by Rosana Mendoza PA-C) Mother Heart disease Coronary heart disease Stroke Father Heart disease Uncle Stroke Grandmother (Paternal) Stroke Uncle Heart disease Social History Smoking Status: Former smoker Tobacco Type: Cigarettes Hx Alcohol Use: No Hx Substance Use: No Beliefs That Will Affect Care: None Current Living Situation: Family Other Information That Helps Us Care for You: No Feels Safe at Home: Yes Safety Concerns: Feels Safe At This Time Assistive Devices: Oxygen - Continuous Review of Systems Review of Systems: All systems reviewed & are unremarkable except as noted in HPI & below Physical Exam Physical Exam: General: Patient is awake, alert with oxygen mask onin no acute distress. CV: Regular rate and rhythm. Normal S1 and S2. No murmurs gallops or rubs. No pedal edema. Pulmonary: Inspiratory basilar crackles (R >L), expiratory wheeze on auscultation. No rhonchi. Abdomen: Soft, nondistended abdomen. No bruits heard on auscultation. No tenderness to deep palpation. No guarding or rebound. Results & Data Results & Data ([facility]) Vital Signs (Past 12 Hours) Vital Signs Temp Pulse Resp BP Pulse Ox 12/12/21 15:20 37.0 C 61 20 147/64 H 99 12/12/21 11:23 36.8 C 62 16 165/69 H 100 12/12/21 09:51 94 12/12/21 09:36 66 121/60 88 L 12/12/21 07:44 36.9 C 60 18 145/68 H 92 12/12/21 07:22 36.6 C 64 12 134/65 93 Resident Activity Tracking Resident Involvement: Resident Care Provided Care Provided: Adult Hospital Medicine
--- NOTE | 2021-12-12 18:20 | Billing Data ---
Date of Service December 12, 2021 Coding Level of Care Code 31129 Initial Inpt Care Lvl 3
--- NOTE | 2021-12-13 05:27 | Electrocardiogram Report ---
Test Reason : Blood Pressure : / mmHG Vent. Rate : 075 BPM Atrial Rate : 075 BPM P-R Int : 230 ms QRS Dur : 120 ms QT Int : 382 ms P-R-T Axes : 052 010 029 degrees QTc Int : 426 ms Sinus rhythm with 1st degree A-V block Right bundle branch block Abnormal ECG When compared with ECG of 20-SEP-2020 14:47, Sinus rhythm has replaced Atrial fibrillation Vent. rate has decreased BY 63 BPM Right bundle branch block is now Present Confirmed by Reese Zamora ([id number]) on 12/13/2021 5:27:15 AM Referred By: Maria Isabel Hogue Confirmed By:Reese Zamora
[2021-12-13] MEDS: LEVOTHYROXINE SODIUM 125 MCG TABLET PO SCH (06:15)
[2021-12-13 06:51] LABS: Hematocrit (blood only) 39.1 % (37-47); Hemoglobin 12.9 g/dL (12.0-16.0); Platelet Count 149 K/uL (130-400); RDW Standard Deviation 48.3 fL (36.4-46.3); Red Blood Count 4.16 M/uL (4.2-5.4); White Blood Count 7.49 K/uL (4.8-10.8)
[2021-12-13 07:06] LABS: INR 1.2 (0.9-1.1); Prothrombin Time 13.1 Seconds (9.0-12.0)
[2021-12-13 07:14] LABS: Albumin Globulin Ratio 1.1 (0.9-2); Albumin Level 3.5 gm/dl (3.4-5.0); BUN Creatinine Ratio 15.9 (10-20); Bilirubin,Total 0.8 mg/dl (0.2-1.0); Calcium 8.6 mg/dl (8.5-10.1); Creatinine Clr Calc Pharmacy 41.9 ml/min; Est GFR (Non-African American) 59.5 ml/min; Globulin 3.2 gm/dl (2.5-4.0); Total Protein 6.7 gm/dl (6.0-8.3)
--- NOTE | 2021-12-13 08:39 | XRay Report ---
XR chest 1V portable CLINICAL HISTORY: follow up ptx COMPARISON STUDY: Chest radiograph December 12, 2021 at 2:34 PM. FINDINGS: A [id number] left pneumothorax is similar to prior exam. Left basilar opacity favors atelectasis. There is no right pneumothorax. Dual-lead left subclavian pacemaker is in place. Cardia c mediastinal silhouette is stable. IMPRESSION: No significant change in a small to moderate left pneumothorax. ACT 112: Negative or not required by law. Electronically signed by: David Leigh M.D. 12/13/2021 8:38 AM
[2021-12-13] MEDS: PANTOprazole 40 MG TAB PO SCH (08:58)
[2021-12-13] MEDS: FAMOTIDINE 20 MG TAB PO SCH (08:58)
[2021-12-13] MEDS: METOPROLOL SUCC 50MG EXT REL TAB PO SCH (08:58)
[2021-12-13] MEDS: LORATADINE 10 MG TAB PO SCH (08:58)
[2021-12-13] MEDS: CHOLECALCIFEROL 1,000 UNITS 25 MCG TAB PO SCH (08:58)
--- NOTE | 2021-12-13 11:21 | XRay Report ---
XR chest 1V portable CLINICAL HISTORY: chest tube placement COMPARISON STUDY: No previous studies for comparison. FINDINGS: Small left pneumothorax has mildly decreased in size since prior exam. Superior pleural sep aration now measures 2.5 cm. It previously measured 2.9 cm. Pleural catheter is extrathoracic in loca tion. Tip projects over the left infraclavicular region. IMPRESSION: Small left pneumothorax, mildly decreased in size since prior exam. Pleural catheter ext rathoracic in location, as described above. ACT 112: Negative or not required by law. Electronically signed by: David Leigh M.D. 12/13/2021 11:20 AM
--- NOTE | 2021-12-13 12:18 | Procedure Note ---
Procedure Note Date of Service December 13, 2021 Note Pneumothorax catheter note Procedure: Evacuation of pneumothorax Anesthesia: 10 mL lidocaine 1% Written consent was obtained and placed on the chart. Timeout was done prior to the procedure. Prior to procedure, chest x-ray films were reviewed by myself and demonstrated a left apical pneumothorax. A time-out was completed verifying correct patient, procedure, site, positioning, and implant(s) or special equipment if applicable. Utilizing bedside ultrasound, chest wall was evaluated for location for optimal chest tube placement. She had significant tenderness over this entire area due to her recent pacemaker placement. Location between the second and third ribs were marked on the skin using gentle pressure. The left sided chest wall was prepped with chlorhexidine and draped in the typical sterile fashion. 10 mL of 1% Lidocaine without epinephrine was used to anesthetize the skin down to the dorsal surface of the second rib. I was able to aspirate some air back with the finder needle. We then made a small debra with a size 11 scalpel. I then attempted insertion of the pneumo dart but was meeting resistance about a [address] in. I was unable to fully pass the catheter. I did place the catheter to suction with the Tracee drainage cath. No tidaling or bubbling was seen. I sutured the catheter in place. I placed a bandage over the catheter site. The patient tolerated the procedure well. Post procedure chest x-ray suggested persistent left apical pneumothorax with an extrapleural pneumothorax catheter. There was a slight decrease in size of the pneumothorax. I ultimately removed the catheter as it was malpositioned. She tolerated the removal well. Sutures were removed. Sterile gauze was placed over the site. Coding CPT Codes Pulmonary/Thoracic - Pulmonary and Thoracic: 88304 Tube thoracostomy ([id number]) Pulmonary/Thoracic - Pulmonary and Thoracic: 18047 Remove lung catheter ([id number]) [facility] [place]) Pulmonary/Thoracic Procedure 1: Pulmonary and Thoracic: 08371 Tube thoracostomy Procedure 2: Pulmonary and Thoracic: 07769 Remove lung catheter
--- NOTE | 2021-12-13 12:19 | Billing Data ---
Date of Service December 13, 2021 Coding Level of Care Code 03949 Subseq Hosp Care Lvl 3
--- NOTE | 2021-12-13 13:08 | Cardiology Progress Note ---
Date of Service December 13, 2021 Assessment & Plan (1) Pneumothorax, postprocedural: (2) S/P cardiac pacemaker procedure: (3) Paroxysmal atrial fibrillation: (4) Tachy-amber syndrome: (5) HTN (hypertension): Plan: Pneumothorax is gradually becoming smaller. Patient less symptomatic. Attempts for catheter placement in pneumothorax limited by current pacemaker today We will recheck clinical status and if stable likely discharge home for follow- up chest x-ray Thursday Admission and Anticipated Discharge Date Admission Date: December 11, 2021 Subjective Patient with less pleuritic pain today. Still surgical incisional discomfort.Patient seen and examined, chart, medications, telemetry reviewed Pacemaker functioning appropriately no significant arrhythmias. Review of Systems Review of Systems: All systems reviewed & are unremarkable except as noted in Subjective Physical Exam Constitutional: + thin; no acute distress Eyes: PERRL, conjunctivae normal, anicteric sclerae ENMT: external ear and nose normal, oropharynx normal Neck: trachea midline, no thyromegaly Respiratory: Auscultation: + diminished lung sounds Cardiovascular: Rate/Rhythm: regular rate and regular rhythm Chest (Breasts): Chest: + pacemaker (No hematoma with mild incisional tenderness) Gastrointestinal (Abdomen): normal bowel sounds, soft, nontender, no hepatosplenomegaly Musculoskeletal: no cyanosis or clubbing, extremities motor strength 5/5 Skin: no rashes, warm and dry Neurologic: PERRL, EOMI, accommodation nl, no face palsy, no dysarthria Results & Data ([facility]) Vital Signs (Past 12 Hours) Vital Signs Temp Pulse Resp BP Pulse Ox 12/13/21 07:53 36.5 C 68 22 141/64 H 99 12/13/21 03:36 36.7 C 70 16 135/64 100 Laboratory Results Laboratory Results - last 24 hr 12/13/21 12/13/21 12/13/21 06:09 06:09 06:09 WBC 7.49 RBC 4.16 L Hgb 12.9 Hct 39.1 MCV 94.0 MCH 31.0 MCHC 33.0 RDW Std Deviation 48.3 H RDW Coeff of Ritu 14.0 Plt Count 149 MPV 12.0 H PT 13.1 H INR 1.2 H Sodium 134 L Potassium 4.0 Chloride 102 Carbon Dioxide 26 Anion Gap 6 BUN 14 Creatinine 0.88 Est Cr Clr Drug Dosing 41.9 Est GFR ( Amer) 69.0 Est GFR (Non-Af Amer) 59.5 BUN/Creatinine Ratio 15.9 Glucose 97 Calcium 8.6 Total Bilirubin 0.8 AST 29 ALT 32 Alkaline Phosphatase 68 Total Protein 6.7 Albumin 3.5 Globulin 3.2 Albumin/Globulin Ratio 1.1
--- NOTE | 2021-12-13 14:14 | Pulmonology Progress Note ---
Date of Service December 13, 2021 Assessment & Plan (1) Pneumothorax, postprocedural: Plan: 86F w/ hx hypertension stage III CKD, hypothyroidism, hyperlipidemia, paroxysmal atrial fibrillation (with tachybradycardia syndrome complications) seen for postprocedural left-sided pneumothorax following implantation of pacemaker -Pneumothorax appears to have reduced in size, from 2.4 to 1.9 cm. -Thoracostomy was attempted today (in light of risk factors for unstable pneumo thorax, most notably her age and emphysematous lung changes) but was unable to penetrate apical pleural space due to location and surrounding pacemaker architecture. Repeat CXR did confirm a further, if minimal, reduction in pneumothorax size at the apex. Basilar pneumothorax appears to have resolved. -Given the stability and progressive, if minimal, reduction in her pneumothorax size over last 2-3 days, tentative plan (pending successful weaning of oxygen to room air) is to conservatively manage, with discharge and repeat CXR on Thursday. Admission and Anticipated Discharge Date Admission Date: December 11, 2021 Supervising Physician Co-Signing Physician Notes Patient seen and examined with the resident physician. Agree with the assessment and plan aside for any additions/exceptions noted: Pleural catheter placement to evacuate the pneumothorax was unsuccessful given location, pain and presence of pacemaker. There was a slight decrease in size of pneumothorax. Her symptoms remain completely stable and she is saturating in the mid to high 90s on room air. Reasonable to discharge the patient home and repeat a chest x-ray on Thursday. If symptoms worsen such as increasing shortness of breath or chest pain, would recommend urgently going to the ER for evaluation of worsening pneumothorax. Recommend minimizing activity for the next 2 days. Avoid any lifting over 5 pounds for the next 2 weeks. Avoid air travel. Physical exam Constitutional: Elderly appearing female no apparent distress. Sitting up in a bed and eating her dinner. Eyes: Pupils are equal round and reactive to light. Conjunctivae are normal. Anicteric sclera. Ears nose, mouth and throat: No facial deformity. Nasal tubing in place. Neck: Trachea is midline. Visual inspection is normal. Respiratory: Clear to auscultation bilaterally. Slightly diminished on the left. No wheezes. Cardiovascular: Regular rate and rhythm. No murmurs. No edema. Gastrointestinal: Normal bowel sounds, soft, nontender and nondistended. No hepatosplenomegaly noted. Musculoskeletal: Left upper limb immobilizer in place. Bandaging in place over the pacemaker site. Skin: No rashes, warm dry and intact. Neurologic: No obvious focal neurological deficits seen. Psychiatric: Alert and oriented x3 with a euthymic affect. Subjective No acute events overnight. She continues to report pleuritic chest pain with inhalation. ROS+ cough. She denies SOB, fatigue, CHU, or dizziness with ambulation. Review of Systems Review of Systems: All systems reviewed & are unremarkable except as noted in HPI & below Physical Exam Physical Exam: General: Patient is awake, alert with oxygen mask onin no acute distress. CV: Regular rate and rhythm. Normal S1 and S2. No murmurs gallops or rubs. No pedal edema. Pulmonary: Inspiratory bibasilar crackles, mild expiratory wheeze on auscultation. No rhonchi. Abdomen: Soft, nondistended abdomen. No bruits heard on auscultation. No tenderness to deep palpation. No guarding or rebound. MSK: Sternal TTP exacerbated by inhalation. Results & Data Results & Data ([facility]) Vital Signs (Past 12 Hours) Vital Signs Temp Pulse Resp BP Pulse Ox 12/13/21 07:53 36.5 C 68 22 141/64 H 99 12/13/21 03:36 36.7 C 70 16 135/64 100 Resident Activity Tracking Resident Involvement: Resident Care Provided Care Provided: Adult Hospital Medicine
--- NOTE | 2021-12-13 16:29 | Discharge Summary ---
Date of Service December 13, 2021 Admission HPI Per Admitting Provider This is an 86 yo F with PMhx of tachybrady syndrome, PAF/flutter on metoprolol and coumadin, HTN, HLD, CKD stage III, hypothyroidism, osteoporosis, CKD III, neuropathy who presented to the hospital overnight for pacemaker insertion on 12/11/[address] Mercedes. Reason for placement is primarily due to tachybradycardia syndrome where earlier in November she was seen by cardiology and her heart rate was noted to be in the 40s so low-dose metoprolol was stopped, then 2 weeks later was followed up in the outpatient cardiology office and found to be in A. fib with a heart rate in the 130s so was started back on low-dose metoprolol and referred to electrophysiology. Doctors is only recommended pacemaker at that point time. Pt is seen s/p pacemaker insertion. She has been holding her Coumadin for the past 2 days prior to pacemaker placement. Patient tolerated the procedure itself well. Post procedurally the patient developed a small left-sided pneumothorax which measured 2 cm initially. This morning the pneumothorax is slightly larger, so the patient was placed on 100% nonrebreather. Pulmonology has been consulted and will plan to repeat chest x-ray routinely to ensure resolvent. Margarita is doing very well currently, with her only complaint is moderate soreness status post procedure. She is wearing a sling to help assist with comfort as well as keeping her from raising her left arm over her head. She denies any complaints of shortness of breath, cough, or congestion. She is aware that she has a lung issue and is been requested to wear oxygen until this resolves. We discussed a repeat chest x-ray around 2:00 this afternoon, pulmonology consult, and will further determine if there is any further needs for pneumothorax management. Admission Exam Per Admitting Provider General: awake, alert, no apparent distress Head: Normocephalic, atraumatic ENT: PERRL, EOMI, no pharyngeal exudate, mucous membranes moist Chest: Clear to auscultation, on 100% nonrebreather with adequate O2 sats, no adventitious breath sounds Cardiac: Regular rate and rhythm, + incision site dressing c/d/i, no murmur, no JVD, normal peripheral pulses, good capillary refill Abdominal: NABS x 4 quadrants, soft, nondistended, nontender to palpation, no rebound or guarding Extremities: Normal inspection, no peripheral edema or erythema, calfs nontender to palpation Psych: Normal mood and affect Neuro: AAO x 3, strength intact bilaterally and rated 5/5, no motor deficits, speech is clear, no peripheral sensory deficits Principal Diagnosis pacemaker placement complicated by left pneumothorax s/p thoracostomy attempt on 12/13-unsuccessful and catheter removed Discharge Exam CONSTITUTIONAL: WNWD, vitals as above, generally well-appearing, ambulating at baseline per nursing staff and patient. EYES: normal conjunctivae, no scleral icterus, ENT: external ear and nose normal, MMM NECK: trachea midline RESPIRATORY: clear to auscultation bilaterally, no crackles, rales or wheezes, normal respiratory effort CARDIOVASCULAR: regular rate and rhythm, S1 and 2 heard without murmurs, gallops or rubs, no JVD, no peripheral edema CHEST:+pacemaker to left anterior chest, wound is closed with some surrounding erythema and no drainage. There is a small puncture wound near this area. Clean, dry dressing overlies the wound. GASTROINTESTINAL: soft, nontender, ND, no guarding MUSCULOSKELETAL: strength 5/5 throughout, head is normocephalic and atraumatic SKIN: warm and dry NEUROLOGIC: CN 2-12 grossly intact, no sensory deficit, normal cognition, normal speech, no gross focal deficits. PSYCHIATRIC: alert cooperative and oriented to person, place and time. Euthymic mood, makes good eye contact, language grossly intact, recent and remote memory grossly intact. Discharge Data Allergies Allergy/AdvReac Type Severity Reaction Status Date / Time Egg Derived Allergy INTOLERANCE Verified 07/19/12 02:13 milk Allergy INTOLERANCE Verified 07/19/12 02:13 Penicillins Allergy UNKNOWN Verified 07/19/12 02:13 Sulfa (Sulfonamide Allergy UNKNOWN Verified 07/19/12 02:13 Antibiotics) Consultations 12/12/21 10:28 Consult Cardiology Routine 12/12/21 10:29 Consult Pulmonology Routine Procedures Performed Operation Date: 12/11/21 12:00 Actual Procedures p Pacer with A/V Leads (Dual) - Maria Isabel Hogue DO Ordered Studies 12/11/21 07:00 EP Lab Images for PACS ONCE 12/13/21 09:54 US point of care ultrasound Urgent Hospital Course (1) S/P cardiac pacemaker procedure: (2) Tachy-amber syndrome: (3) Paroxysmal atrial fibrillation: 86-year-old female with history of paroxysmal atrial fibrillation/flutter on metoprolol Coumadin presented for pacemaker placement for treatment of tachybradycardia syndrome. She underwent this procedure by Dr. Glass 12/11/2021. The procedure was complicated by postoperative pneumothorax on the left. She remained in the hospital overnight on oxygen supplementation. Unfortunately oxygen was discontinued due to normal oxygen saturation and the following morning she had pleuritic pain and incisional pain with minimal intermittent drops in oxygen saturations. Chest x-ray revealed slightly larger pneumothorax with basilar expansion. Warfarin was placed on hold. Pulmonary consultation was placed. Repeat chest x-ray later that afternoon suggested slight interval improvement of the left apical pneumothorax and conservative measures were recommended. On hospital day 3 of thoracostomy was attempted in light of risk factors for unstable pneumothorax, most notably her age and emphysematous lung changes. Grinding Machine Operator [employer] was unable to penetrate apical pleural space due to location and surrounding pacemaker architecture. A repeat chest x-ray did confirm a further if minimal reduction in pneumothorax size at the apex with basilar pneumothorax having resolved. Given the stability and progressive, if minimal, reduction in her pneumothorax size over 2 to 3 days she was discharged home with a repeat chest x-ray after the weekend. This chest x-ray was ordered by Dr. Rosales from cardiology and the patient will follow up in his office for a touch base after the film. This instruction was given to the patient prior to discharge from the hospital. At time of discharge she was mentating and ambulating at baseline and tolerating p.o. She had normal oxygen saturation while ambulating as checked by the nurse. She was discharged in stable condition with close primary care follow-up recommended. She was given all postprocedural instructions and will follow up for pacemaker check and wound check in 1 week. She verbalized understanding of this with intent to comply. Total Time Total Time Spent Total Time Spent (In Minutes): 60 Discharge Plan Discharge Items Patient Disposition: Home - Self-Care Reason For Visit: POST PACEMAKER Discharge Diagnosis: pacemaker placement complicated by left pneumothorax s/p thoracostomy attempt on 12/13-unsuccessful and catheter removed Condition on Discharge: Good Activity: As commented below Activity Comment: do not raise the left elbow over the left shoulder for 1 month Lifting: No more than 10 pounds Lifting Comment: do not lift more than 10 pounds with the left arm for 2 weeks Bathing: Keep incision dry Bathing Comment: keep dressing on & dry until wound check next week Sexual Activity: After two weeks Non-emergency contact: Primary Care Provider and Assembler [employer] Call non-emergency contact if: you have any medication questions, your symptoms worsen, your pain is not controlled, your pain is worsening, your pain is unusual for you, your pain is concerning for you, you have a fever, your wound has increased redness, your wound has increased drainage and your wound pain has increased Follow-up/Referrals: Brice Spears MD [Primary Care Provider] - Diet: Gluten Free and Heart Healthy Addtl Attending Provider Instructions: Please take all medications as instructed on discharge list below. It is recommended that you go to the [facility] ([address] [place] [address]) for a chest x-ray anytime after [address] Dusty Rosales ([facility]) will order this for you. He would like you to come to his office after the film so he can take a look at it and you before you leave. It is recommended to follow-up with your primary care provider within one week of hospital discharge in order to touch base since going home and ensure you are still doing well. Please follow all post-operative instructions as stated and contact [facility] for any clarification. It was a pleasure taking care of you! Please call if you have any questions or problems. You can reach a [facility] on duty at [facility] 24 hours a day by calling [phone]. Take care of yourself. Enid Matt, [facility] Hospitalist Addtl Programming Director Provider Instructions: Device and wound check next week as scheduled at [facility] Increase toprol to 50mg daily-I sent a new script to your local pharmacy so your new script will be 1 tab daily as each tab is 50mg; if you were taking your old script it would be 2 tabs daily as each tab is 25mg Pending Studies at Discharge: No Stand-Alone Forms: Anesthesia/Sedation, Adult, My [facility] Medications and DC Order Prescriptions: Continued WARFARIN SODIUM 5 MG tablet 5 mg PO DAILY Qty: 0 RF: 0 Mometasone Furoate (Nasal) (Mometasone Furoate) 50 MCG/ACT SPR 2 spry MARLEN BID Qty: 0 RF: 0 CHOLECALCIFEROL (VITAMIN D3) 2,000 UNIT capsule 2,000 inter.unit PO DAILY Qty: 0 RF: 0 KETOTIFEN FUMARATE (OPHTH) (ZADITOR 0.025% OPH) 0.025 % VIOLET 1 drp OPB UD PRN (Reason: Allergy Symptoms) Qty: 0 RF: 0 Loratadine (Claritin) 10 MG tablet 10 mg PO DAILY Qty: 0 RF: 0 MULTIPLE VITAMINS W/ MINERALS (PRESERVISION AREDS 2) 1 CAP capsule 2 cap PO DAILY Qty: 0 RF: 0 Acetaminophen (Tylenol) 500 MG tablet 500 mg PO UD PRN (Reason: Pain or Fever) Qty: 0 RF: 0 omeprazole 40 mg Capsule,Delayed Release(Dr/Ec) 40 mg PO DAILY RF: 0 famotidine 20 mg Tablet 20 mg PO DAILY RF: 0 levothyroxine [Synthroid] 125 mcg Tablet 125 mcg PO DAILY RF: 0 ipratropium bromide 21 mcg (0.03 %) [place],Non-Aerosol 2 spray INTRANASAL BID PRN (Reason: Runny Nose) RF: 0 vitamin B complex Capsule 1 cap PO DAILY RF: 0 Probiotic 3 billion cell Capsule 3,000 mmu cells PO DAILY RF: 0 Systane Hydration PF 0.4-0.3 % Drops 1 drp ophthalmic (eye) DAILY PRN (Reason: Dry Eyes) RF: 0 Changed Metoprolol Succinate (Metoprolol Succinate ER) 25 MG [id number] 50 mg PO DAILY Qty: 0 RF: 0 Discharge Orders: Discharge Order (Routine); Ordered 12/13/21 Ordered By: Enid Matt Admission Data Admit Date/Time: 12/11/21 17:14 Attending Provider: Enid Matt Admit Provider: Maria Isabel Hogue Primary Care Provider: Brice Spears Other Providers: Dusty Rosales ; Tariq Alonso Other Interventions: Discharge Summary Assessment (RN) Last Done: 12/13/21 17:31
--- NOTE | 2021-12-13 17:54 | Billing Data ---
Date of Service December 13, 2021 Coding Level of Care Code 89538 Subseq Obs Care Lvl 2
--- NOTE | 2021-12-19 04:44 | Operative Report (OR) ---
DATE OF PROCEDURE: 12/11/2021. PREOPERATIVE DIAGNOSIS: Tachybrady syndrome. POSTOPERATIVE DIAGNOSIS: Tachybrady syndrome. PROCEDURE: Dual-chamber rate responsive permanent pacemaker under fluoroscopic guidance along with a peripheral venogram and intracardiac electrogram His bundle recording. SURGEON: Maria Isabel Hogue DO. ASSISTANTS: None. ANESTHESIA: Monitored conscious sedation administered under my supervision by Beatrice Garcia. Sta rt time 1410, end time 1604. Total of 3 mg of Versed and 150 mcg of fentanyl. INTRAVENOUS FLUIDS: 160 mL. ANTIBIOTICS: 600 mg of clindamycin. CONTRAST: 25 mL. BLOOD LOSS: 25 mL. URINE OUTPUT: Not applicable. SPECIMENS: None. FINDINGS: See below. DRAINS: None. COMPLICATIONS: Pneumothorax. CONDITION: Stable. INDICATIONS: This is an 86-year-old female with a past medical history for paroxysmal atrial fibrill ation on metoprolol and Coumadin, CHADS2-VASc score of 4, hypertension, hyperlipidemia, chronic kidne y disease stage III, gastroesophageal reflux disease and hypothyroidism. She is having evidence of t achybrady syndrome and was recommended a pacemaker. CONSENT: Consent was obtained prior to the patient going into electrophysiology lab. The patient wa s explained the risks, benefits, and alternatives to the procedure. Risks include, but not limited t o, sudden cardiac , cardiac arrhythmias, cerebrovascular accident, myocardial infarction, injury to blood vessels, chamber of the heart and lung, bleeding and infection. The patient understood the se risks and agreed to the procedure as planned. Informed consent was obtained. DESCRIPTION OF PROCEDURE: The patient was brought into electrophysiology lab in a fasting state. Sh e was connected to continuous cardiac monitoring. A time-out was performed to ensure patient identit y and procedure correctly. She was prepped and draped over the left infraclavicular space in normal surgical standard fashion. Monitored conscious sedation was given throughout the procedure for patie nt's comfort level. [place] precautions were maintained throughout the procedure. She received pr ophylactic antibiotics prior to incision identified. 10 mL of 1% lidocaine-bupivacaine mixture were given in the left deltopectoral groove. An incision w as made in the left axillary. Blunt dissection was performed down to the pectoralis muscle. Then, u sing blunt dissection over the pectoralis muscle, a pacemaker pocket was created. Then, a peripheral venogram was performed to identify the axillary vein. Venous axillary access was obtained through a needlestick. I did have concerns that may be I caused a pneumothorax during this time, but the bal ent remained stable throughout the procedure. A guidewire was inserted without any resistance and a 7-Niuean sheath was then inserted over the guidewire without any resistance. The dilator was removed . A second guidewire was inserted through the sheath to allow for retained venous access. Of note, again with the venous axillary access, there was some spasm with the vein and she had a lot of venous valves making me did have to go very proximal stick. The 7-Niuean sheath was flushed and reinserted over the dilator, then reinserted one of the guidewire s, the guidewire and dilator removed. Then, the His C315 sheath was advanced over a Glidewire into t he right ventricle over fluoroscopic guidance. The guidewire and dilator were removed and the lead w as advanced through the sheath and intracardiac electrogram His bundle recordings were obtained with the camera was in ARNETT 10. Once I found where the His is, I then moved the camera into ARNETT 30 and [facility] ke where this was on my fluoroscopy screen, then came down about 2 cm from this in a line that would extend out to the apex. Then, we came on pacing to see how my morphology paced complex looked in my V1 lead. They did see one area that was decent. I went to ARGENTINE, tried to start screwing it in, givi ng clockwise turns and pausing every once in a while to see how the pacing morphology changed. I did have to reposition the lead a few times, but ultimately I found a nice spot that advanced nicely int o the septum and the complex developed a nice acceptable R prime paced complex. I then gave contrast through the sheath to see how I was well into the septum. I then slit the His C315 sheath under flu oroscopic guidance. I left the 7-Niuean sheath in while I then positioned the right atrial lead. A second 7-Niuean sheath was advanced over the retained guidewire. The guidewire and dilator were rem idalia. The right atrial lead was then advanced into the right atrium and positioned into the right at rial appendage under fluoroscopic guidance. There was adequate pacing and sensing thresholds and no diaphragmatic stimulation with high output pacing. The 7-Niuean sheath was peeled away and the lead was attached to fixate it to pectoralis muscle using 0 silk suture. A 7-Niuean sheath around the left bundle lead was then peeled away and the lead was fixated to pector patricia muscle using 0 silk suture. The pocket was flushed with copious amounts of vancomycin and salin e wash and inspected for hemostasis. The pulse generator was then attached to the leads making sure the pins were in appropriate position, passed set screws, and set screws were all tightened. Pulse g enerator was then placed in the TYRX pouch that was tied then being placed in the pocket, making sure the leads were lying flat beneath the device. The incision was closed in a 3-layer fashion with 2-0 Vicryl interrupted suture followed by 3-0 Vicryl interrupted suture, followed by 4-0 Monocryl runnin g stitch and Dermabond was applied followed by Telfa and Tegaderm dressing. EQUIPMENT: 1. The pulse generator is a Shipzi Gilman XT DR ALEXANDRE Shaikh [id number], serial number [id number]. 2. Right atrial lead, Medtronic 5076-52 cm, serial number [id number]. 3. Left bundle lead, Medtronic 3830-69 cm, serial number [id number]. INTRAOPERATIVE TESTIN. His bundle recordings AH 110 milliseconds, HV 65 milliseconds. 2. Right atrial lead, P waves 5.4 millivolts, impedance 834 ohms, threshold 0.6 volts at 0.4 millise conds. 3. Left bundle lead, R waves 10.5 millivolts, impedance 800 ohms, threshold 0.4 volts at 0.4 millise conds. FINAL MEASUREMENTS THROUGH THE DEVICE. 1. Right atrial lead, P waves 3.4 millivolts, impedance 722 ohms, threshold 0.75 volts at 0.4 millis econds. 2. Left bundle lead, R waves 11.5 millivolts, impedance 798 ohms, threshold 0.5 volts at 0.4 millise conds. FINAL PARAMETERS: MVP-R 60/130. Right atrial amplitude 3.5 volts, pulse width 0.4 milliseconds, sens itivity 0.3 millivolts. Left bundle lead amplitude 3.5 volts, pulse width 0.4 milliseconds, sensitiv ity 1.2 millivolts. IMPRESSION: Successful dual chamber rate responsive permanent pacemaker implantation along with danna pheral venogram and intracardiac electrogram His bundle recordings under fluoroscopic guidance second chet to tachybrady syndrome. PLAN: Monitor the patient post-procedure. A 12-lead ECG, chest x-ray and recheck the device in a fe w hours. We will increase her metoprolol to 50 mg daily. She is to keep the dressing on and dry unt il her wound check next week. She is not to lift the left elbow or left shoulder for 1 month. She c annot lift more than 10 pounds with left arm for 2 weeks. If the chest x-ray does suggest a pneumoth orax, which I suspected, then we might keep her overnight. She is currently asymptomatic. Job ID: [id number]
== END 2021-12-13 18:18 | disposition home or self-care (01) ==
LOC: 2E 10:48 → EP 10:48